=== PATIENT | male | born 1965 | race Caucasian/White ===

== ENCOUNTER 2017-11-13 10:24 | Emergency (ER) | payer OTHER ==
[2017-11-13 11:04] VITALS: BP 126/84; PULSE 76; TEMP 98.6; BMI 30.8
[2017-11-13] MEDS ORDERED: CYCLOBENZAPRINE HCL 10 MG TABLET (FP) PO ONE (11:59)
[2017-11-13] MEDS ORDERED: ACETAMINOPHEN 325 MG TABLET (FP) PO ONE (11:59)
[2017-11-13] MEDS ORDERED: CYCLOBENZAPRINE HCL 10 MG TABLET (FP) ONE (12:02)
[2017-11-13] MEDS ORDERED: ACETAMINOPHEN 325 MG TABLET (FP) ONE (12:02)
--- NOTE | 2017-11-13 12:09 | PDOC ---
History of Present Illness - General Chief Complaint: Back Pain Stated Complaint: LOWER BACK PAIN Time Seen by Provider: 11/13/17 11:42 History Source: Patient Exam Limitations: No Limitations - History of Present Illness Initial Comments: 11/13/17 12:04 52-year-old male presents the ED with complaints of right lower back pain since Thursday. 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 Patient states this morning went to the bathroom but was able to stand up secondary to pain in his right lower back. Patient denies saddle anesthesia, incontinence, or radiation down her legs. Occurred: reports: other (2 days) Severity: reports: moderate Pain Location: reports: back Method of Injury: Yes: unknown Modifying Factors: improves with: None Associated Symptoms (Fall): trouble walking Past History - Travel Traveled outside of the country in the last 30 days: No Close contact w/someone who was outside of country & ill: No - Past Medical History Allergies/Adverse Reactions: Allergies Allergy/AdvReac Type Severity Reaction Status Date / Time No Known Allergies Allergy Verified 11/13/17 11:03 Home Medications: Ambulatory Orders Cyclobenzaprine HCl [Flexeril -] 5 mg PO TID PRN #12 tablet 11/13/17 Oxycodone HCl/Acetaminophen [Percocet 5-325 mg Tablet] 1 - 2 tab PO Q6H PRN #12 tab MDD 4 11/13/17 COPD: No - Suicide/Smoking/Psychosocial Hx Smoking History: Never smoked Have you smoked in the past 12 months: No Information on smoking cessation initiated: No Hx Alcohol Use: No Drug/Substance Use Hx: No Substance Use Type: None Patient Lives Alone: No Lives with/in: spouse/SO Review of Systems - Review of Systems Able to Perform ROS?: Yes Constitutional: No: Symptoms Reported ABD/GI: No: Symptoms Reported Musculoskeletal: Yes: Back Pain, Muscle Pain Integumentary: No: Symptoms Reported Neurological: No: Symptoms reported *Physical Exam - Vital Signs Last Vital Signs Temp Pulse Resp BP Pulse Ox 98.6 F 76 18 126/84 100 11/13/17 11:00 11/13/17 11:00 11/13/17 11:00 11/13/17 11:00 11/13/17 11:00 - Physical Exam General Appearance: Yes: Nourished, Appropriately Dressed. No: Apparent Distress Musculoskeletal: positive: Vertebral Tenderness (L2-L4 and right paspinous at l2 -l5 level ). negative: CVA Tenderness Extremity: positive: Normal Range of Motion Integumentary: positive: Normal Color, Warm, Moist Neurologic: positive: Motor Strength 5/5 (bilateral straight leg raise. normal axial loading) ED Treatment Course - RADIOLOGY Radiology Studies Ordered: Category Date Time Status SPINE-LUMBAR ONLY [RAD] Stat Radiology 11/13/17 11:59 Ordered Medical Decision Making - Medical Decision Making 11/13/17 12:10 Patient with right low back pain since Thursday. Patient ordered for Tylenol Percocet and Flexeril along with the lumbar x-ray secondary to midline tenderness to L2-L4 11/13/17 12:58 xray shows no acute findings or fracture. *DC/Admit/Observation/Transfer Diagnosis at time of Disposition: Strain of lumbar paraspinal muscle Qualifiers: Encounter type: initial encounter Qualified Code(s): S39.012A - Strain of muscle, fascia and tendon of lower back, initial encounter - Discharge Dispostion Disposition: HOME Condition at time of disposition: Improved - Prescriptions Prescriptions: Cyclobenzaprine HCl [Flexeril -] 5 mg PO TID PRN #12 tablet PRN Reason: Back Pain Oxycodone HCl/Acetaminophen [Percocet 5-325 mg Tablet] 1 - 2 tab PO Q6H PRN #12 tab MDD 4 PRN Reason: Pain - Referrals Referrals: Ash Lassiter MD [Primary Care Provider] - - Patient Instructions Printed Discharge Instructions: DI for Low Back Pain, DI for Back Spasm Additional Instructions: Please take medication as prescribed until completed. Apply ice to the affected area for the next 3 days,. Rest and follow up with your DR. or employee health if symptoms continue. - Post Discharge Activity Forms/Work/School Notes: Back to Work
== END 2017-11-13 13:24 | disposition home or self-care (01) ==
LOC: JERFT 10:24
DX: S39.012A Strain of muscle, fascia and tendon of lower back, initial encounter (principal); V78.0XXA Driver of bus injured in noncollision transport accident in nontraffic accident, initial encounter; Y92.414 Local residential or business street as the place of occurrence of the external cause; Y93.89 Activity, other specified; Y99.0 Civilian activity done for income or pay
CPT/HCPCS: 72100-TC; 99281-25